=== PATIENT | male | born 1995 | race African-American/Black ===

== ENCOUNTER 2021-11-19 14:40 | Emergency (ER) | payer SELFPAY ==
[2021-11-19 15:48] LABS: HEMOGLOBIN 15.3 gm/dl (14.0-17.5); RED BLOOD COUNT 5.22 M/UL (4.20-5.50); WHITE BLOOD COUNT 14.4 K/UL (4.5-11.0)
[2021-11-19 16:16] LABS: BUN/CREATININE RATIO 10 (0-10)
[2021-11-19] MEDS ORDERED: MEDROL DOSEPAK 24 MG PO (16:51)
[2021-11-19] MEDS ORDERED: AUGMENTIN 875-1 EACH PO (16:51)
== END 2021-11-19 16:16 | disposition home or self-care (01) ==
LOC: ER1 14:40
PROVIDERS: Physician Assistant Medical
DX: J02.8 Acute pharyngitis due to other specified organisms (principal)
CPT/HCPCS: 70491; 80053; 85025; 86403; 87081; 87880; 96374; 96375; 99283; J1100; J1885; Q9967